=== PATIENT | female | born 1995 | race Caucasian/White ===

== ENCOUNTER 2023-06-16 13:45 | Outpatient (CLI) | payer SELFPAY ==
[2023-06-16 14:12] VITALS: BP 119/76; PULSE 85; RESP 15; TEMP 36.7
[2023-06-16 14:28] VITALS: BMI 26.2
[2023-06-16 15:44] LABS: Mucous, Urine 0 SEEN /hpf (<or=2+); Red Blood Cells-Urine 0 SEEN /hpf (0-5)
[2023-06-16 15:51] LABS: Color, Urine Yellow (Yellow); Glucose, Dipstick Normal (Normal); Ketone-Dipstick Negative (Negative); Leukocyte Esterase-Dipstick 25 /ul (Negative); Nitrite-Dipstick Negative (Negative); Occult Blood-Urine Negative /ul (Negative); Protein-Dipstick Negative (Negative); Urine Bilirubin Dipstick Negative (Negative); Urine Clarity Clear (Clear); Urine Urobilinogen Normal (Normal)
[2023-06-16 15:58] LABS: Bacteria 1+ /hpf (None Seen); Squamous Epithelial Cells - UA 0-5 SEEN /hpf (5-10); White Blood Cells 0-5 SEEN /hpf (0-5)
--- NOTE | 2023-06-17 13:51 | OB.TRI.HP_ITS ---
HPI - General General Date of Admission: 06/16/23 Date of Service: 06/16/23 Chief Complaint: 36-week intrauterine with some blood in the urine. HPI Narrative YUMIKO HOLT, is a 27 F who presents to labor and delivery from her physician obstetrician referral for some blood in the urine. Patient reports some occasional mild contractions but otherwise is doing well feeling the baby move well. Patient denies any vaginal bleeding. PFSH PFSH Home Medications docosahexaenoic acid 200 mg capsule ( DHA) mg PO 06/16/23 [History Last Taken 06/16/23] Allergy/AdvReac Type Severity Reaction Status Date / Time No Known Allergies Allergy Verified 06/16/23 14:26 NST FHR Rate Baby A NST Reactive:: Yes Uterine Activity:: Mild activity noted. Assessment & Plan (1) Urinary tract infection affecting care of mother in third trimester, antepartum: COMMENT: Urinalysis showed possible urinary tract infection. Offered patient IV Ancef versus oral Macrobid and patient refused IV therapy. Nonstress test was reactive. Contractions not felt by the patient. Patient refused cervical exam. PLAN: Plan 36-week intrauterine with possible urinary tract infection. Macrobid 100 mg twice daily called to [facility] pharmacy in [place]. A single dose of Macrobid was given prior to discharge. Patient otherwise will follow-up with her physician obstetrician for care.
== END 2023-06-16 17:20 | disposition home or self-care (01) ==
LOC: WPOUT 13:57 → WP 13:58
PROVIDERS: Referring Provider Obstetrics & Gynecology; Visit Provider Obstetrics & Gynecology
DX: O23.43 Unspecified infection of urinary tract in pregnancy, third trimester (principal); Z3A.36 36 weeks gestation of pregnancy
CPT/HCPCS: 59025; 59050; 81001; 87086; 99221; G0378